=== PATIENT | male | born 1990 | race Caucasian/White ===

== ENCOUNTER 2021-09-25 08:19 | Inpatient (IN) | payer MEDICAID, SELFPAY ==
[2021-09-25 08:23] VITALS: BP 122/70; PULSE 55; RESP 12; TEMP 36.4; O2SAT 97; BMI 26.2
--- NOTE | 2021-09-25 08:37 | ED.C_ITS ---
HPI - Psych General: Chief Complaint: Psychiatric Symptoms Stated Complaint: Mental Evaluation Time Seen by Provider: 09/25/21 08:21 Source: patient Mode of arrival: ambulatory Limitations: no limitations History of Present Illness: HPI Narrative: Patient is a 31-year-old male who presents to ED today requesting mental health evaluation. Patient tells me he feels out of touch with reality stating that he functions at a higher capacity than most other individuals . He states he has a low level of tolerance for other individuals immorality. He states any form of negative thoughts seem to consume him. He reports thoughts of vigilante and states he does have thoughts of harming higher members of government stating that he has the Microdermis's Creed tattoo on his arm. He reports he recently was kicked out of his residence by his girlfriend after he found her cheating. He recently lost his job at [employer] after demanding pay. History of same: Yes Associated symptoms: Reports homicidal ideation; Deny auditory hallucinations, visual hallucinations or suicidal ideation Review of Systems Const: Denies: fever(s) or chills Eyes: Denies: change in vision or blurry vision Card: Denies: chest pain, palpitations, irregular heart rhythm, lightheaded ness, syncope or dyspnea on exertion Resp: Denies: dyspnea, productive cough or pain on inspiration GI: Denies: abdominal pain, nausea, vomiting, heartburn or diarrhea : Denies: difficulty urinating or dysuria Musc: Denies: neck pain, back pain or joint pain Skin/Breast: Denies: rash Psych: Reports: homicidal ideation; Denies: visual hallucinations, auditory hallucinations or suicidal ideation [facility] ED PFSH: Medical History (Updated 09/25/21 @ 09:25 by LINCOLN Newton) Psychiatric care Social History (Updated 08/27/21 @ 08:47 by Bharat Atkins LPN) Smoking and tobacco status: current every day smoker Alcohol intake: former Physical Exam Const: COMMON NORMALS: no acute distress, patient oriented x3, alert and well nourished GENERAL APPEARANCE: cooperative and well kempt Resp: COMMON NORMALS: normal respiratory effort and clear to auscultation bilaterally AUSCULTATION: clear to auscultation bilaterally Cardio: COMMON NORMALS: regular rate and regular rhythm RATE: regular rate RHYTHM: regular rhythm Neuro: NENO COMA SCALE: document GCS findings [place] coma scale eye opening: Spontaneous [place] coma scale verbal response: Orientated Neno coma scale motor response: Obey commands Neno coma scale total score: 15 COMMON NORMALS: patient oriented x3, CN's II-XII intact bilaterally, moves all extremities, no focal motor deficits, no sensory deficits noted and gait normal SENSORIUM/ORIENTATION: Yes alert Psych: COMMON NORMALS: mental status grossly normal, Normal thought process present, cooperative, normal affect, speech normal, activity/motor behavior normal, denies hallucinations and denies suicidal ideation APPEARANCE: Yes grossly normal and Yes well kempt ATTITUDE: Yes calm ACTIVITY/MOTOR BEHAVIOR: Yes appropriate eye contact and No psychomotor agitation SPEECH: Yes normal speech MOOD & AFFECT: Yes euthymic mood THOUGHT PROCESS: Normal thought process present ATTENTION/CONCENTRATION: Yes attention grossly intact and Yes concentration grossly intact MEMORY/COGNITION: Yes memory grossly intact and Yes cognition grossly intact INSIGHT: Fair insight present (Psych) JUDGEMENT: Fair judgement present (Psych) Course Consultations: Consultation #1: Dr. Joe- requests affidavits by myself and patient-accepts to NPU Vital Signs: Vital signs: Vital Signs Temperature 97.5 F L 09/25/21 08:23 Pulse Rate 61 09/25/21 08:54 Respiratory Rate 14 09/25/21 08:54 Blood Pressure 128/68 09/25/21 08:54 Pulse Oximetry 97 09/25/21 08:54 MDM - Psych Lab Data: Labs: Lab Results 09/25/21 09/25/21 09/25/21 08:49 08:49 08:53 WBC 7.2 10^3/uL 10^3/ uL (4.0-10.0) RBC 5.05 10^6/uL 10^6 /uL (4.1-5.3) Hgb 16.4 g/dL g/dL (11.7-16.6) Hct 46.8 % % (42.0-52.0) MCV 92.7 fl fl (80-94) MCH 32.5 pg pg (28.0-34.0) MCHC 35.0 g/dL g/dL (30.0-36.0) RDW 11.9 % L % (12.1-15.1) Plt Count 170 10^3/cmm 10^3 /cmm (130-400) MPV 10.9 fL H fL (7.4-10.4) Neut % (Auto) 51.5 % % Lymph % (Auto) 43.4 % % [place] % (Auto) 3.9 % % Eos % (Auto) 0.8 % % Baso % (Auto) 0.4 % % Neut # (Auto) 3.68 10^3/uL 10^3 /uL (1.8-7.7) Lymph # (Auto) 3.1 10^3/uL 10^3/ uL (0.8-4.8) [place] # (Auto) 0.3 10^3/uL 10^3/ uL (0.2-0.9) Eos # (Auto) 0.1 10^3/uL 10^3/ uL (0.0-0.8) Baso # (Auto) 0.0 10^3/uL 10^3/ uL (0.0-0.1) Nucleated RBC % (a uto) 0 % % Nucleated RBCs # 0.0 /100WBC /100W BC Sodium 141 mmol/L mmol/L (136-145) Potassium 4.1 mmol/L mmol/L (3.5-5.1) Chloride 103 mmol/L mmol/L (98-107) Carbon Dioxide 24 mmol/L mmol/L (22-29) Anion Gap 18.1 (5-19) BUN 8 mg/dL mg/dL (6-20) Creatinine 0.5 mg/dL L mg/dL (0.7-1.2) GFR Calculation 196.6 mL/min H mL /min (90-130) Glucose 86 mg/dL mg/dL (65-115) Calculated Osmolal ity 290 mOsm/kg mOsm/ kg (285-295) Calcium 8.9 mg/dL mg/dL (8.5-10.5) Total Bilirubin 1.0 mg/dL mg/dL (0.15-1.2) AST 20 U/L U/L (0-40) ALT 25 U/L U/L (0-41) Alkaline Phosphata se 66 IU/L IU/L (40-130) Total Protein 7.7 g/dL g/dL (6.6-8.7) Albumin 4.8 g/dL g/dL (3.5-5.2) Globulin 2.9 g/dL g/dL (1.3-4.6) Salicylates < 0.3 mg/dL L mg/ dL (3-10) Urine Opiates Scre en Negative ng/mL ng /mL (Negative) Acetaminophen < 5.0 ug/mL L ug/ mL (10-30) Ur Barbiturates Sc reen Negative ng/mL ng /mL (Negative) Ur Phencyclidine S crn Negative ng/mL ng /mL (Negative) Ur Amphetamines Sc reen Negative ng/mL ng /mL (Negative) U Benzodiazepines Scrn Negative ng/mL ng /mL (Negative) Urine Cocaine Scre en Negative ng/mL ng /mL (Negative) U Marijuana (THC) Screen Positive ng/mL H ng/mL (Negative) Ethyl Alcohol < 10 mg/dL mg/dL (0-10) Discharge Plan Discharge Patient Disposition: Admitted As Inpatient Clinical Impression: Acute psychosis, Homicidal ideation Condition: Stable Prescriptions: No Action No Known Home Medications RF: 0 clindamycin HCl 300 mg capsule 300 mg PO TID 7 Days Qty: 21 RF: 0 Coding Level of Care Code ED Rn Urgent Care for Chg Fwd Exam Detailed
[2021-09-25 08:54] VITALS: BP 128/68; PULSE 61; RESP 14; O2SAT 97
[2021-09-25 08:55] LABS: Basophils % 0.4 %; Eosinophils # 0.1 10^3/uL (0.0-0.8); Eosinophils % 0.8 %; Hematocrit 46.8 % (42.0-52.0); Hemoglobin 16.4 g/dL (11.7-16.6); Lymphocytes # 3.1 10^3/uL (0.8-4.8); Lymphocytes % 43.4 %; Mean Corpuscular Hemoglobin 32.5 pg (28.0-34.0); Mean Corpuscular Volume 92.7 fl (80-94); Mean Platelet Volume 10.9 fL (7.4-10.4); Monocytes # 0.3 10^3/uL (0.2-0.9); Monocytes % 3.9 %; Neutrophils # 3.68 10^3/uL (1.8-7.7); Neutrophils % 51.5 %; Nucleated Red Blood Cells % 0 %; Platelet Count 170 10^3/cmm (130-400); Red Blood Count 5.05 10^6/uL (4.1-5.3); Red Cell Distribution Width 11.9 % (12.1-15.1); White Blood Count 7.2 10^3/uL (4.0-10.0)
[2021-09-25 09:15] LABS: Alanine Aminotransferase 25 U/L (0-41); Albumin Level 4.8 g/dL (3.5-5.2); Alkaline Phosphatase 66 IU/L (40-130); Anion Gap 18.1 (5-19); Aspartate Amino Transferase 20 U/L (0-40); Blood Urea Nitrogen 8 mg/dL (6-20); Calcium 8.9 mg/dL (8.5-10.5); Carbon Dioxide 24 mmol/L (22-29); Chloride 103 mmol/L (98-107); Globulin 2.9 g/dL (1.3-4.6); Glomerular Filtration Rate 196.6 mL/min (90-130); Glucose 86 mg/dL (65-115); Osmolality Calculated 290 mOsm/kg (285-295); Potassium 4.1 mmol/L (3.5-5.1); Sodium 141 mmol/L (136-145); Total Protein 7.7 g/dL (6.6-8.7)
[2021-09-25 09:16] LABS: Acetaminophen < 5.0 ug/mL (10-30); Alcohol Level < 10 mg/dL (0-10); Salicylate < 0.3 mg/dL (3-10)
[2021-09-25 09:19] LABS: Amphetamines Screen Urine Negative (Negative); Barbiturates Screen Urine Negative (Negative); Benzodiazepines Screen Urine Negative (Negative); Cocaine Screen Urine Negative (Negative); Opiate Screen Urine Negative (Negative); PCP Screen Urine Negative (Negative); THC Screen Urine Positive (Negative)
[2021-09-25 10:43] VITALS: PULSE 64; RESP 16; O2SAT 98
[2021-09-25 11:20] LABS: SARS Covid-2 Antigen Positive (Negative)
[2021-09-25 14:00] VITALS: BP 113/73; BP 118/72; PULSE 62; PULSE 68; RESP 14; RESP 17; TEMP 36.6; TEMP 36.9; O2SAT 99
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
[2021-09-25] MEDS: escitalopram 10 mg Tablet PO (16:07)
[2021-09-25 20:29] VITALS: BP 137/89; PULSE 51; RESP 17; TEMP 36.9; O2SAT 100
[2021-09-25] MEDS: hyDROXYzine 25 mg Capsule 50 MG PO (21:15)
[2021-09-25] MEDS: trazodone 50 mg Tablet PO (21:15)
--- NOTE | 2021-09-25 22:55 | PC.NURSE ---
Patient requested something for insomnia and anxiety. Trazadone and Vistaril given. Meds were effective.
[2021-09-26 05:59] VITALS: BP 137/89; PULSE 51; RESP 17; TEMP 36.9; O2SAT 100
[2021-09-26 06:33] VITALS: RESP 16
[2021-09-26] MEDS: escitalopram 10 mg Tablet PO (09:16)
[2021-09-26] MEDS: nicotine 21 mg Patch 1 PATCH TRANSDERMA (09:20)
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
[2021-09-26 14:00] VITALS: BP 127/84; PULSE 59; RESP 17; TEMP 36.9; O2SAT 97
[2021-09-26] MEDS: nicotine 2 mg Gum BUCCAL ×2 (17:20→19:20)
[2021-09-26 20:25] VITALS: BP 113/73; PULSE 50; RESP 18; O2SAT 98
[2021-09-26] MEDS: trazodone 50 mg Tablet PO ×2 (20:53→22:28)
[2021-09-26] MEDS: hyDROXYzine 25 mg Capsule 50 MG PO (20:53)
--- NOTE | 2021-09-27 01:45 | PC.NURSE ---
PRN administration Patient c/o of trouble getting to sleep at night and anxiety. PRN trazodone and PRN hydroxyzine PO given as ordered with noted effectiveness.
[2021-09-27 06:00] VITALS: BP 115/72; PULSE 66; RESP 18; TEMP 36.6; O2SAT 98
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
[2021-09-27] MEDS: escitalopram 10 mg Tablet PO (09:08)
[2021-09-27] MEDS: nicotine 2 mg Gum BUCCAL ×3 (09:35→16:59)
[2021-09-27 14:00] VITALS: BP 108/68; PULSE 61; RESP 17; O2SAT 96
[2021-09-27 20:11] VITALS: BP 140/98; PULSE 62; RESP 17; O2SAT 99
[2021-09-27] MEDS: quetiapine 100 mg Tablet PO (20:25)
[2021-09-28 05:54] VITALS: BMI 26.2
[2021-09-28 06:00] VITALS: BP 109/71; PULSE 52; RESP 16; TEMP 37; O2SAT 98
[2021-09-28] MEDS: escitalopram 10 mg Tablet PO (08:47)
[2021-09-28] MEDS: nicotine 2 mg Gum BUCCAL ×4 (09:06→20:11)
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
[2021-09-28 14:00] VITALS: BP 124/78; PULSE 59; RESP 20; TEMP 36.6; O2SAT 98
[2021-09-28] MEDS: quetiapine 100 mg Tablet PO (20:11)
[2021-09-28 20:20] VITALS: BP 115/75; PULSE 61; RESP 17; TEMP 36.6; O2SAT 98
[2021-09-29 06:00] VITALS: BP 120/82; PULSE 52; RESP 18; TEMP 36.3; O2SAT 98
[2021-09-29] MEDS: nicotine 21 mg Patch 1 PATCH TRANSDERMA (06:18)
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
[2021-09-29 07:42] VITALS: BP 120/82; PULSE 52; RESP 18; TEMP 36.3; O2SAT 98
[2021-09-29] MEDS: escitalopram 10 mg Tablet PO (08:35)
== END 2021-09-29 10:30 | disposition home or self-care (01) | DRG 885 ==
LOC: ER 09:25 → NP 10:09
PROVIDERS: Admitting Provider Psychiatry & Neurology Psychiatry; Emergency Provider Physician Assistant; Visit Provider Psychiatry & Neurology Psychiatry
DX: F33.2 Major depressive disorder, recurrent severe without psychotic features (principal); U07.1 COVID-19; F41.1 Generalized anxiety disorder; F60.3 Borderline personality disorder; F17.210 Nicotine dependence, cigarettes, uncomplicated; F43.10 Post-traumatic stress disorder, unspecified; R45.850 Homicidal ideations
CPT/HCPCS: 80053; 80306; 80307; 85025; 87426; 97150; 97165; 99285